=== PATIENT | female | born 1965 | race Caucasian/White ===

== ENCOUNTER 2017-07-07 12:59 | Emergency (ER) | payer BC ==
[2017-07-07] MEDS ORDERED: KETOROLAC 30 MG/ML 1 ML VIAL IVP STA (15:30)
--- NOTE | 2017-07-07 15:34 | ED ---
Abdominal Pain HPI - General Chief Complaint: Abdominal Pain Stated Complaint: Abd Pain Time Seen by Provider: 07/07/17 15:17 Source: patient Mode of arrival: ambulatory Limitations: no limitations - History of Present Illness Initial Comments: 51-year-old female presenting with lower abdominal pain that began yesterday. Patient states started yesterday morning after she awoke. She states it's an intermittent sharp pain is worse with ambulation and sitting up and improves with rest. She's been taking Motrin and Tylenol without any relief. Patient states yesterday she had one episode of inability to urinate that resolved 2 hours later. She denies any chest pain or short of breath. She admits to a fever yesterday of 100.4. Patient states that her primary care physician today who instructed her to come to the emergency department for concern of appendicitis. Patient states she has no history of diverticulitis or other IBD. She has no history of kidney stones. - Related Data Home Medications Medication Instructions Recorded Confirmed Aspirin [Adult Low Dose Aspirin EC] 81 mg PO DAILY 03/26/15 07/07/17 Enalapril [Vasotec] 10 mg PO DAILY 03/26/15 07/07/17 L.acidoph,Paracasei, B.lactis 1 cap PO DAILY 03/26/15 07/07/17 [Probiotic] Metoprolol Succinate (ER) [Toprol 25 mg PO DAILY 03/26/15 07/07/17 Xl] Previous Rx's Medication Instructions Recorded Amoxicillin/Potassium Clav 1 tab PO Q12HR 10 Days #20 tab 07/07/17 [Augmentin 875-125 Tablet] Allergies Allergy/AdvReac Type Severity Reaction Status Date / Time latex Allergy causes Verified 07/07/17 15:36 blistering and sloughing of skin nitrofurantoin Allergy Rash/Hives Verified 07/07/17 15:36 macrocrystalline [From Macrodantin] Review of Systems ROS Statement: Those systems with pertinent positive or pertinent negative responses have been documented in the HPI. Review of Systems Constitutional: Denies fever, chills Eyes: Denies change in vision, Denies pain Ears, nose, mouth, throat: Denies headaches, Denies sore throat Cardiovascular: Denies chest pain. Denies palpitations Respiratory: Denies shortness of breath, Denies cough Gastrointestinal: Positive abdominal pain. Denies nausea, vomiting, diarrhea. Genitourinary: Denies hematuria, Denies infections. Positive dysuria. Musculoskeletal: Denies pain, Denies swelling Integumentary: Denies rash Neurological: Denies headache, focal weakness, focal numbness. Positive syncope Psychiatric: Denies anxiety, Denies depression Hematologic/Lymphatic: Denies easy bleeding or bruising ROS Other: All systems not noted in ROS Statement are negative. Past Medical History Past Medical History: GERD/Reflux, Hypertension, Sleep Apnea/CPAP/BIPAP Additional Past Medical History / Comment(s): recent dx of hital hernia History of Any Multi-Drug Resistant Organisms: None Reported Past Surgical History: Cholecystectomy, Orthopedic Surgery, Tubal Ligation, Uterine Ablation Additional Past Surgical History / Comment(s): BILAT KNEE SCOPES Past Anesthesia/Blood Transfusion Reactions: Postoperative Nausea & Vomiting ( PONV) Past Psychological History: No Psychological Hx Reported Smoking Status: Never smoker Past Alcohol Use History: Rare Past Drug Use History: None Reported - Past Family History Mother Family Medical History: Cancer General Exam - General Exam Comments Initial Comments: General: Awake, alert, No acute Distress HENT: Normocephalic. Atraumatic Eyes: PERRL. EOMI. No scleral icterus. No injected conjunctiva Neck: Full ROM Chest/Lungs: Clear to auscultation bilaterally. No wheezing, rhonchi, or rales Cardiac: Regular rate, rhythm. No murmurs or rubs Abdomen/GI: Soft. TTP RLQ, suprapubic, and LLQ. No rebound or guarding. Musculoskeletal: Full ROM Skin: Warm, dry, intact Neurologic: A/Ox3, no weakness, no sensory deficit, no abdnormal gait, no coordination deficit Limitations: no limitations Course Vital Signs 07/07/17 13:58 Temperature 98.1 F Pulse Rate 99 Respiratory 20 Rate Blood Pressure 140/94 O2 Sat by Pulse 96 Oximetry Medical Decision Making - Medical Decision Making 51-year-old female presenting with abdominal pain. Initial exam the patient is awake, alert, no acute distress. VSS. Patient's abdomen is tender but non- peritoneal. Laboratory workup is unremarkable. Computed tomography scan showed uncomplicated diverticulitis. Stable for outpatient treatment of her diverticulitis. States she had a colonoscopy 2 years ago which was unremarkable. No further emergent workup indicated. The patient was given return to ED instructions. They were instructed to follow up with their primary care provider. Stable for discharge at this time. - Lab Data Result diagrams: 07/07/17 15:50 07/07/17 15:50 Lab Results 07/07/17 07/07/17 07/07/17 Range/Units 15:50 15:50 15:50 WBC 9.9 (3.8-10.6) k/uL RBC 4.73 (3.80-5.40) m/uL Hgb 14.3 (11.4-16.0) gm/dL Hct 39.9 (34.0-46.0) % MCV 84.3 (80.0-100.0) fL MCH 30.2 (25.0-35.0) pg MCHC 35.9 (31.0-37.0) g/dL RDW 12.8 (11.5-15.5) % Plt Count 228 (150-450) k/uL Neutrophils % 75 % Lymphocytes % 17 % Monocytes % 5 % Eosinophils % 2 % Basophils % 0 % Neutrophils # 7.3 (1.3-7.7) k/uL Lymphocytes # 1.7 (1.0-4.8) k/uL Monocytes # 0.5 (0-1.0) k/uL Eosinophils # 0.2 (0-0.7) k/uL Basophils # 0.0 (0-0.2) k/uL Sodium 140 (137-145) mmol/L Potassium 3.7 (3.5-5.1) mmol/L Chloride 103 (98-107) mmol/L Carbon Dioxide 23 (22-30) mmol/L Anion Gap 14 mmol/L BUN 8 (7-17) mg/dL Creatinine 0.52 (0.52-1.04) mg/dL Est GFR (CKD-EPI)AfAm >90 (>60 ml/min/1.73 sqM) Est GFR (CKD-EPI)NonAf >90 (>60 ml/min/1.73 sqM) Glucose 93 (74-99) mg/dL Calcium 9.1 (8.4-10.2) mg/dL Total Bilirubin 0.6 (0.2-1.3) mg/dL AST 24 (14-36) U/L ALT 37 (9-52) U/L Alkaline Phosphatase 83 (38-126) U/L Total Protein 6.9 (6.3-8.2) g/dL Albumin 3.9 (3.5-5.0) g/dL Amylase 40 (30-110) U/L Lipase 50 (23-300) U/L Urine Color Yellow Urine Appearance Clear (Clear) Urine pH 5.5 (5.0-8.0) Ur Specific [place] 1.009 (1.001-1.035) Urine Protein Negative (Negative) Urine Glucose (UA) Negative (Negative) Urine Ketones 1+ H (Negative) Urine Blood Negative (Negative) Urine Nitrite Negative (Negative) Urine Bilirubin Negative (Negative) Urine Urobilinogen <2.0 (<2.0) mg/dL Ur Leukocyte Esterase Negative (Negative) Disposition Clinical Impression: Diverticulitis Disposition: HOME SELF-CARE Condition: Good Instructions: Diverticulitis (ED), Diverticulitis Diet (ED) Additional Instructions: Return to emergency department if he develops uncontrollable fever, worsening abdominal pain, inability to tolerate eating or drinking. Prescriptions: Amoxicillin/Potassium Clav [Augmentin 875-125 Tablet] 1 tab PO Q12HR 10 Days # 20 tab Referrals: Billy Montez DO [Primary Care Provider] - 1-2 days
[2017-07-07 16:09] LABS: Appearance,Urine Clear (Clear); Bilirubin,Urine Negative (Negative); Blood,Urine Negative (Negative); Color,Urine Yellow; Glucose,Urine (UA) Negative (Negative); Ketones,Urine 1+ (Negative); Leukocyte Esterase,Urine Negative (Negative); Nitrite,Urine Negative (Negative); PH, Urine 5.5 (5.0-8.0); Protein,Urine Negative (Negative); Specific Gravity,Urine 1.009 (1.001-1.035); Urobilinogen,Urine <2.0 mg/dL (<2.0)
[2017-07-07 16:14] LABS: Basophils % (A) 0 %; Eosinophils # (A) 0.2 k/uL (0-0.7); Eosinophils % (A) 2 %; HCT 39.9 % (34.0-46.0); HGB 14.3 gm/dL (11.4-16.0); Lymphocytes # (A) 1.7 k/uL (1.0-4.8); Lymphocytes % (A) 17 %; MCH 30.2 pg (25.0-35.0); MCHC 35.9 g/dL (31.0-37.0); MCV 84.3 fL (80.0-100.0); Monocytes # (A) 0.5 k/uL (0-1.0); Monocytes % (A) 5 %; Neutrophils # (A) 7.3 k/uL (1.3-7.7); Neutrophils % (A) 75 %; Platelet Count 228 k/uL (150-450); RBC 4.73 m/uL (3.80-5.40); RDW 12.8 % (11.5-15.5); WBC 9.9 k/uL (3.8-10.6)
[2017-07-07 16:17] LABS: ALT 37 U/L (9-52); AST 24 U/L (14-36); Albumin 3.9 g/dL (3.5-5.0); Alkaline Phosphatase 83 U/L (38-126); Amylase 40 U/L (30-110); Anion Gap 14 mmol/L; Blood Urea Nitrogen 8 mg/dL (7-17); Calcium 9.1 mg/dL (8.4-10.2); Carbon Dioxide 23 mmol/L (22-30); Chloride 103 mmol/L (98-107); Glucose 93 mg/dL (74-99); Lipase 50 U/L (23-300); Potassium 3.7 mmol/L (3.5-5.1); Sodium 140 mmol/L (137-145); Total Bilirubin 0.6 mg/dL (0.2-1.3); Total Protein 6.9 g/dL (6.3-8.2)
--- NOTE | 2017-07-07 16:31 | CT ---
EXAMINATION TYPE: CT abdomen pelvis wo con DATE OF EXAM: 07/07/2017 COMPARISON: 02/10/2011 HISTORY: RLQ pain CT DLP: 1127.4 mGycm Examination of the solid and hollow viscera is limited given the lack of contrast. FINDINGS: LUNG BASES: No evidence for nodule. No evidence for infiltrate. Small sliding-type hiatal hernia. LIVER/GB: Cholecystectomy clips are noted. Changes of hepatic steatosis. No space-occupying hepatic l esion. PANCREAS: No pancreatic mass identified. No inflammatory process seen. SPLEEN: No evidence for splenomegaly. No intrasplenic lesions seen. ADRENALS: No adrenal nodules identified. No evidence for thickening. KIDNEYS: No evidence for renal mass. No nephrolithiasis. No hydronephrosis. BOWEL: Appendix has a normal appearance. Wall thickening with surrounding perisigmoid inflammatory ch abebe compatible with uncomplicated sigmoid diverticulitis. No evidence of perforation or abscess. No evidence of bowel obstruction. Lymph nodes: No evidence for adenopathy greater than 1 cm. Abdominal aorta: Atheromatous changes seen. No evidence for aneurysm. Genital organs: Subcentimeter left ovarian follicle. Uterus and right ovary are unremarkable. Other: No significant abnormality. IMPRESSION: 1. Uncomplicated sigmoid diverticulitis mild in degree. 2. Hepatic steatosis. 3. Small sliding-type hiatal hernia.
[2017-07-07 17:04] VITALS: BP 120/76; PULSE 87; RESP 18; TEMP 98.7
== END 2017-07-07 17:01 | disposition home or self-care (01) ==
LOC: EC 12:59
DX: K57.92 Diverticulitis of intestine, part unspecified, without perforation or abscess without bleeding (principal); I10 Essential (primary) hypertension; G47.30 Sleep apnea, unspecified; Z99.89 Dependence on other enabling machines and devices; Z90.49 Acquired absence of other specified parts of digestive tract; Z98.51 Tubal ligation status; Z91.040 Latex allergy status; Z88.1 Allergy status to other antibiotic agents; Z79.82 Long term (current) use of aspirin; Z79.899 Other long term (current) drug therapy
CPT/HCPCS: 36415; 80053; 82150; 83690; 85025; 81003; 74176; 99284; 96374; J1885

== ENCOUNTER → 2018-07-15 | Outpatient (CLI) | payer BC ==
--- NOTE | 2018-07-16 09:18 | CT ---
EXAMINATION TYPE: CT angio head DATE OF EXAM: 07/15/2018 6:07 PM COMPARISON: None HISTORY: Migraines x3 months, felt in central back of head CT DLP: 1455.10 mGycm Automated exposure control for dose reduction was used. TECHNIQUE: Performed with IV Contrast, patient injected with 100 mL of Isovue 370. Three-D reconstructed images were performed separately by the technologist. Source images are reviewe d. FINDINGS: Vertebral basilar system appears normal. Posterior cerebral vasculature is normal. The internal carotid arteries bifurcate normally into A1 and M1 segments. The anterior communicating artery is patent. A2 segments are normal. Middle branches are normal. There is a tiny focus of increased caliber and density in the periphery of the left middle cerebral a rtery branches on the reconstructed images. This appears to correspond to a peripheral larger caliber vessel on the source images, perhaps middle meningeal artery. Suspicious aneurysm is not identified. IMPRESSION: 1. KAIBAB OF FUNES WITHIN NORMAL LIMITS.
== END | disposition home or self-care (01) ==
LOC: RADCTMAIN 16:46
PROVIDERS: ATTEND Family Medicine
DX: G43.009 Migraine without aura, not intractable, without status migrainosus (principal); I10 Essential (primary) hypertension
CPT/HCPCS: 70496; Q9967

== ENCOUNTER 2018-08-16 06:35 | Emergency (ER) | payer BC ==
[2018-08-16 06:40] VITALS: TEMP 97.9
[2018-08-16] MEDS ORDERED: SODIUM CHLORIDE 0.9% 1,000 ML IV STA (06:53)
[2018-08-16] MEDS ORDERED: ONDANSETRON 4 MG/2 ML VIAL IVP STA (07:04)
--- NOTE | 2018-08-16 07:07 | ED ---
Abdominal Pain HPI - General Chief Complaint: Abdominal Pain Stated Complaint: Abdominal pain Time Seen by Provider: 08/16/18 06:53 Source: patient, RN notes reviewed Mode of arrival: ambulatory Limitations: no limitations - History of Present Illness Initial Comments: 53-year-old female presents emergency Department with chief complaint of abdominal discomfort nausea vomiting diarrhea. Patient states that she had some intermittent nausea and progressed to vomiting and and Thursday. Patient states that she's had diarrhea rate she is worse every time she tries knee. Last she had this issue she had diverticulitis. Patient reports no fever no chills no night sweats. Patient states she has some dull achy pain in the right lower quadrant. She has a history of tubal ligation and cholecystectomy. Patient states that nobody else is sick in the household. Patient has no chest pain or shortness of breath. Denies any other complaints at this time. - Related Data Home Medications Medication Instructions Recorded Confirmed Aspirin [Adult Low Dose Aspirin EC] 81 mg PO DAILY 03/26/15 08/16/18 Enalapril [Vasotec] 10 mg PO DAILY 03/26/15 08/16/18 L.acidoph,Paracasei, B.lactis 1 cap PO DAILY 03/26/15 08/16/18 [Probiotic] Metoprolol Succinate (ER) [Toprol 25 mg PO DAILY 03/26/15 08/16/18 Xl] Previous Rx's Medication Instructions Recorded Ondansetron Odt [Zofran Odt] 4 mg PO Q8HR PRN #14 tab 08/16/18 Allergies Allergy/AdvReac Type Severity Reaction Status Date / Time latex Allergy causes Verified 08/16/18 08:30 blistering and sloughing of skin nitrofurantoin Allergy Rash/Hives Verified 08/16/18 08:30 macrocrystalline [From Macrodantin] Review of Systems ROS Statement: Those systems with pertinent positive or pertinent negative responses have been documented in the HPI. ROS Other: All systems not noted in ROS Statement are negative. Past Medical History Past Medical History: GERD/Reflux, Hypertension, Sleep Apnea/CPAP/BIPAP Additional Past Medical History / Comment(s): recent dx of hital hernia,diverticulitis History of Any Multi-Drug Resistant Organisms: None Reported Past Surgical History: Cholecystectomy, Orthopedic Surgery, Tubal Ligation, Uterine Ablation Additional Past Surgical History / Comment(s): BILAT KNEE SCOPES Past Anesthesia/Blood Transfusion Reactions: Postoperative Nausea & Vomiting (PONV) Past Psychological History: No Psychological Hx Reported Smoking Status: Never smoker Past Alcohol Use History: Rare Past Drug Use History: None Reported - Past Family History Mother Family Medical History: Cancer General Exam Limitations: no limitations General appearance: alert, in no apparent distress Head exam: Present: atraumatic, normocephalic, normal inspection Neck exam: Present: normal inspection, full ROM. Absent: tenderness, meningismus, lymphadenopathy Respiratory exam: Present: normal lung sounds bilaterally. Absent: respiratory distress, wheezes, rales, rhonchi, stridor Cardiovascular Exam: Present: regular rate, normal rhythm, normal heart sounds. Absent: systolic murmur, diastolic murmur, rubs, gallop, clicks GI/Abdominal exam: Present: soft, tenderness (Mild right lower quadrant), normal bowel sounds. Absent: distended, guarding, rebound, rigid Back exam: Absent: CVA tenderness (R), CVA tenderness (L) Skin exam: Present: warm, dry, intact, normal color. Absent: rash Course Vital Signs 08/16/18 08/16/18 06:36 09:04 Temperature 97.9 F Pulse Rate 80 72 Respiratory 18 16 Rate Blood Pressure 134/98 129/86 O2 Sat by Pulse 99 96 Oximetry Medical Decision Making - Medical Decision Making 53-year-old female presents emergency Department chief complaint abdominal pain, nausea vomiting diarrhea. Patient's lab work is essentially unremarkable CT does not show any evidence of diverticulitis or localized infection. Patient most likely has underlying gastritis. Patient will be discharged with Zofran, advised take [id number] Pepto-Bismol or Mylanta. Return parameters were discussed. - Lab Data Result diagrams: 08/16/18 08:30 08/16/18 07:25 Lab Results 08/16/18 08/16/18 08/16/18 Range/Units 07:15 07:25 07:25 WBC (3.8-10.6) k/uL RBC (3.80-5.40) m/uL Hgb (11.4-16.0) gm/dL Hct (34.0-46.0) % MCV (80.0-100.0) fL MCH (25.0-35.0) pg MCHC (31.0-37.0) g/dL RDW (11.5-15.5) % Plt Count (150-450) k/uL Neutrophils % % Lymphocytes % % Monocytes % % Eosinophils % % Basophils % % Neutrophils # (1.3-7.7) k/uL Lymphocytes # (1.0-4.8) k/uL Monocytes # (0-1.0) k/uL Eosinophils # (0-0.7) k/uL Basophils # (0-0.2) k/uL Sodium 140 (137-145) mmol/L Potassium 3.5 (3.5-5.1) mmol/L Chloride 106 (98-107) mmol/L Carbon Dioxide 23 (22-30) mmol/L Anion Gap 11 mmol/L BUN 13 (7-17) mg/dL Creatinine 0.49 L (0.52-1.04) mg/dL Est GFR (CKD-EPI)AfAm >90 (>60 ml/min/1.73 sqM) Est GFR (CKD-EPI)NonAf >90 (>60 ml/min/1.73 sqM) Glucose 102 H (74-99) mg/dL Plasma Lactic Acid Carlos 0.8 (0.7-2.0) mmol/L Calcium 9.3 (8.4-10.2) mg/dL Total Bilirubin 0.4 (0.2-1.3) mg/dL AST 48 H (14-36) U/L ALT 64 H (9-52) U/L Alkaline Phosphatase 55 (38-126) U/L Total Protein 6.9 (6.3-8.2) g/dL Albumin 4.3 (3.5-5.0) g/dL Lipase 77 (23-300) U/L Urine Color Yellow Urine Appearance Cloudy H (Clear) Urine pH 5.5 (5.0-8.0) Ur Specific [place] 1.031 (1.001-1.035) Urine Protein Trace H (Negative) Urine Glucose (UA) Negative (Negative) Urine Ketones Trace H (Negative) Urine Blood Negative (Negative) Urine Nitrite Negative (Negative) Urine Bilirubin Negative (Negative) Urine Urobilinogen <2.0 (<2.0) mg/dL Ur Leukocyte Esterase Moderate H (Negative) Urine RBC 3 (0-5) /hpf Urine WBC 18 H (0-5) /hpf Ur Squamous Epith Cells 31 H (0-4) /hpf Urine Bacteria Occasional H (None) /hpf Urine Mucus Many H (None) /hpf 08/16/18 Range/Units 08:30 WBC 4.7 (3.8-10.6) k/uL RBC 4.75 (3.80-5.40) m/uL Hgb 14.1 (11.4-16.0) gm/dL Hct 42.0 (34.0-46.0) % MCV 88.4 (80.0-100.0) fL MCH 29.8 (25.0-35.0) pg MCHC 33.7 (31.0-37.0) g/dL RDW 12.5 (11.5-15.5) % Plt Count 247 (150-450) k/uL Neutrophils % 53 % Lymphocytes % 33 % Monocytes % 5 % Eosinophils % 5 % Basophils % 1 % Neutrophils # 2.5 (1.3-7.7) k/uL Lymphocytes # 1.6 (1.0-4.8) k/uL Monocytes # 0.2 (0-1.0) k/uL Eosinophils # 0.2 (0-0.7) k/uL Basophils # 0.0 (0-0.2) k/uL Sodium (137-145) mmol/L Potassium (3.5-5.1) mmol/L Chloride (98-107) mmol/L Carbon Dioxide (22-30) mmol/L Anion Gap mmol/L BUN (7-17) mg/dL Creatinine (0.52-1.04) mg/dL Est GFR (CKD-EPI)AfAm (>60 ml/min/1.73 sqM) Est GFR (CKD-EPI)NonAf (>60 ml/min/1.73 sqM) Glucose (74-99) mg/dL Plasma Lactic Acid Carlos (0.7-2.0) mmol/L Calcium (8.4-10.2) mg/dL Total Bilirubin (0.2-1.3) mg/dL AST (14-36) U/L ALT (9-52) U/L Alkaline Phosphatase (38-126) U/L Total Protein (6.3-8.2) g/dL Albumin (3.5-5.0) g/dL Lipase (23-300) U/L Urine Color Urine Appearance (Clear) Urine pH (5.0-8.0) Ur Specific [place] (1.001-1.035) Urine Protein (Negative) Urine Glucose (UA) (Negative) Urine Ketones (Negative) Urine Blood (Negative) Urine Nitrite (Negative) Urine Bilirubin (Negative) Urine Urobilinogen (<2.0) mg/dL Ur Leukocyte Esterase (Negative) Urine RBC (0-5) /hpf Urine WBC (0-5) /hpf Ur Squamous Epith Cells (0-4) /hpf Urine Bacteria (None) /hpf Urine Mucus (None) /hpf Disposition Clinical Impression: Gastroenteritis Disposition: HOME SELF-CARE Condition: Stable Instructions (If sedation given, give patient instructions): Gastroenteritis (ED) Additional Instructions: Please return to the Emergency Department if symptoms worsen or any other concerns. Prescriptions: Ondansetron Odt [Zofran Odt] 4 mg PO Q8HR PRN #14 tab PRN Reason: Nausea Is patient prescribed a controlled substance at d/c from ED?: No Referrals: Billy Montez DO [Primary Care Provider] - 1-2 days Time of Disposition: 09:07
[2018-08-16 08:05] LABS: Appearance,Urine Cloudy (Clear); Bacteria,Urine Occasional /hpf; Bilirubin,Urine Negative (Negative); Blood,Urine Negative (Negative); Color,Urine Yellow; Glucose,Urine (UA) Negative (Negative); Ketones,Urine Trace (Negative); Leukocyte Esterase,Urine Moderate (Negative); Mucus,Urine Many /hpf; Nitrite,Urine Negative (Negative); PH, Urine 5.5 (5.0-8.0); Protein,Urine Trace (Negative); RBC,Urine 3 /hpf (0-5); Specific Gravity,Urine 1.031 (1.001-1.035); Squamous Epithelial Cell,Urine 31 /hpf (0-4); Urobilinogen,Urine <2.0 mg/dL (<2.0)
--- NOTE | 2018-08-16 08:22 | CT ---
EXAMINATION TYPE: CT abdomen pelvis w con DATE OF EXAM: 08/16/2018 HISTORY: History of diverticulitis with right lower quadrant pain since last night. CT DLP: 1051mGycm Automated Exposure Control for Dose Reduction was Utilized. CONTRAST: CT scan of the abdomen and pelvis is attempted without oral but with with IV Contrast, patient inject ed with 100 mL of Isovue 300. COMPARISON: CT abdomen pelvis July 07, 2017 FINDINGS: There is IV injection difficulties making evaluation suboptimal as essentially only delayed phased imaging is performed. LUNG BASES: There is bibasilar dependent atelectasis. LIVER/GB: Liver is diffusely low dense consistent with fatty infiltration. Cholecystectomy clips are redemonstrated. PANCREAS: No significant abnormality is seen. SPLEEN: Subcentimeter splenule anterior splenic hilum axial image 23. ADRENALS: No significant abnormality is seen. KIDNEYS: No significant abnormality is seen. BOWEL: Scattered diverticula in the left and sigmoid colon are present. No CT evidence for acute dive rticulitis. No suspicious small or large bowel dilatation. No inflammatory change at base of cecum is identified. Appendix not seen with certainty and may be surgically absent. Small sliding-type hiatal hernia redemonstrated. UTERUS/[place]: No gross abnormality seen. LYMPH NODES: No greater than 1cm abdominal or pelvic lymph nodes are appreciated. Prominent but subce ntimeter lymph nodes throughout the left-sided mesentery are present. OSSEOUS STRUCTURES: No significant abnormality is seen. OTHER: No significant additional abnormality is seen. IMPRESSION: No significant new or acute finding is seen to account for patient's clinical symptoms.
[2018-08-16 08:36] LABS: ALT 64 U/L (9-52); AST 48 U/L (14-36); Albumin 4.3 g/dL (3.5-5.0); Alkaline Phosphatase 55 U/L (38-126); Anion Gap 11 mmol/L; Blood Urea Nitrogen 13 mg/dL (7-17); Calcium 9.3 mg/dL (8.4-10.2); Carbon Dioxide 23 mmol/L (22-30); Chloride 106 mmol/L (98-107); Glucose 102 mg/dL (74-99); Lipase 77 U/L (23-300); Potassium 3.5 mmol/L (3.5-5.1); Sodium 140 mmol/L (137-145); Total Bilirubin 0.4 mg/dL (0.2-1.3); Total Protein 6.9 g/dL (6.3-8.2)
[2018-08-16 08:45] LABS: Basophils % (A) 1 %; Eosinophils # (A) 0.2 k/uL (0-0.7); Eosinophils % (A) 5 %; HGB 14.1 gm/dL (11.4-16.0); Lymphocytes # (A) 1.6 k/uL (1.0-4.8); Lymphocytes % (A) 33 %; MCH 29.8 pg (25.0-35.0); MCHC 33.7 g/dL (31.0-37.0); MCV 88.4 fL (80.0-100.0); Monocytes # (A) 0.2 k/uL (0-1.0); Monocytes % (A) 5 %; Neutrophils # (A) 2.5 k/uL (1.3-7.7); Neutrophils % (A) 53 %; Platelet Count 247 k/uL (150-450); RBC 4.75 m/uL (3.80-5.40); RDW 12.5 % (11.5-15.5); WBC 4.7 k/uL (3.8-10.6)
[2018-08-16 09:05] VITALS: BP 129/86; PULSE 72; RESP 16
== END 2018-08-16 09:31 | disposition home or self-care (01) ==
LOC: EC 06:35
DX: K52.9 Noninfective gastroenteritis and colitis, unspecified (principal); I10 Essential (primary) hypertension; G47.30 Sleep apnea, unspecified; Z79.82 Long term (current) use of aspirin; Z79.899 Other long term (current) drug therapy; Z91.040 Latex allergy status; Z88.1 Allergy status to other antibiotic agents; Z90.49 Acquired absence of other specified parts of digestive tract
CPT/HCPCS: 36415; 80053; 83605; 83690; 85025; 81001; 87086; 74177; 99284; 96374; 96361 ×2; J2405; Q9967

== ENCOUNTER → 2018-09-01 | Outpatient (CLI) | payer BC ==
--- NOTE | 2018-09-01 16:20 | XR ---
EXAMINATION TYPE: XR knee complete RT DATE OF EXAM: 09/01/2018 CLINICAL HISTORY: Medial and anterior right knee pain after strain injury TECHNIQUE: Three views of the right knee are obtained. COMPARISON: 01/11/2013 left knee x-ray. FINDINGS: There is no acute fracture/dislocation evident in right knee. There is mild medial compart ment joint space narrowing and very minimal tricompartmental osteophytes.. The overlying soft tissue appears unremarkable. IMPRESSION: There is no acute fracture or dislocation in the right knee. Mild tricompartmental arthr opathy.
== END | disposition home or self-care (01) ==
LOC: RADXRYALE 15:58
PROVIDERS: ATTEND Physician Assistant Medical
DX: M17.11 Unilateral primary osteoarthritis, right knee (principal)

== ENCOUNTER → 2019-10-18 | Outpatient (CLI) | payer BC ==
--- NOTE | 2019-10-18 11:33 | XR ---
EXAMINATION TYPE: XR cervical spine 5 views comp, XR lumbosacral spine min 4V DATE OF EXAM: 10/18/2019 COMPARISON: None HISTORY: 54-year-old female [id number], [id number], [id number], NECK PAIN, LBP, RT HIP PAIN FINDINGS: Cervical spine: Normal odontoid view. Straightening of the normal cervical lordosis with preserved alignment. No pred ental space widening or prevertebral soft tissue swelling. Moderate degenerative disc disease C5-C6 w ith endplate spondylosis and disc height loss. Mild bony spondylotic neuroforaminal narrowing on the left at C3-C4 and C5-C6. Lumbar spine: Vertebral body heights are preserved. Facet arthropathy lower lumbar spine. Trace grade 1 anterolisth esis L4-L5. Disc interspaces are relatively maintained. No pars interarticularis defect seen. IMPRESSION: 1. Cervical spine: Moderate spondylotic change at C5-C6. Mild bony neuroforaminal narrowing on the le ft at C3-C4 and C5-C6. No malalignment. 2. Lumbar spine: Some facet degenerative change lower lumbar spine. No vertebral compression collapse . Trace grade 1 anterolisthesis at L4-L5.
== END | disposition home or self-care (01) ==
LOC: RADXRYALE 08:39
PROVIDERS: ATTEND Physician Assistant Medical
DX: M48.02 Spinal stenosis, cervical region (principal); M47.812 Spondylosis without myelopathy or radiculopathy, cervical region; M47.816 Spondylosis without myelopathy or radiculopathy, lumbar region
CPT/HCPCS: 72050; 72110

== ENCOUNTER 2020-06-27 17:47 | Inpatient (IN) | payer BC ==
[2020-06-27] MEDS ORDERED: NALOXONE 0.4 MG/ML 1 ML VIAL IV PRN (18:10)
[2020-06-27] MEDS ORDERED: ACETAMINOPHEN TAB 325 MG TAB PO PRN (18:10)
--- NOTE | 2020-06-27 18:20 | ED ---
General Adult HPI - General Stated complaint: SOB Time Seen by Provider: 06/27/20 17:51 Source: patient, EMS, RN notes reviewed, old records reviewed - History of Present Illness Initial comments: 54-year-old female transferred from [facility] for coronavirus pneumonia and hypoxia. Patient has been sick for approximately 10 days. Her was diagnosed with coronavirus prior to this. She's had some minimal nausea vomiting as well as increased cough and dyspnea. Her primary care physician had noted a pulse ox in the 80s. She was sent outside emergency department where she continued to be hypoxic which did respond to supplemental oxygen. She was placed on 4 L. Chest x-ray as well as laboratory testing was performed she was given 10 mg of Decadron and transferred to this institution for coronavirus with hypoxia and pulmonology consultation. - Related Data Home Medications Medication Instructions Recorded Confirmed Aspirin [Adult Low Dose Aspirin EC] 81 mg PO DAILY 03/26/15 08/16/18 Enalapril [Vasotec] 10 mg PO DAILY 03/26/15 08/16/18 L.acidoph,Paracasei, B.lactis 1 cap PO DAILY 03/26/15 08/16/18 [Probiotic] Metoprolol Succinate (ER) [Toprol 25 mg PO DAILY 03/26/15 08/16/18 Xl] Previous Rx's Medication Instructions Recorded Ondansetron Odt [Zofran Odt] 4 mg PO Q8HR PRN #14 tab 08/16/18 Allergies Allergy/AdvReac Type Severity Reaction Status Date / Time latex Allergy causes Verified 08/16/18 08:30 blistering and sloughing of skin nitrofurantoin Allergy Rash/Hives Verified 08/16/18 08:30 macrocrystalline [From Macrodantin] Review of Systems ROS Statement: Those systems with pertinent positive or pertinent negative responses have been documented in the HPI. ROS Other: All systems not noted in ROS Statement are negative. Past Medical History Past Medical History: GERD/Reflux, Hypertension, Sleep Apnea/CPAP/BIPAP Additional Past Medical History / Comment(s): recent dx of hital hernia,diverticulitis History of Any Multi-Drug Resistant Organisms: None Reported Past Surgical History: Cholecystectomy, Orthopedic Surgery, Tubal Ligation, Uterine Ablation Additional Past Surgical History / Comment(s): BILAT KNEE SCOPES Past Anesthesia/Blood Transfusion Reactions: Postoperative Nausea & Vomiting (PONV) Past Psychological History: No Psychological Hx Reported Past Alcohol Use History: Rare Past Drug Use History: None Reported - Past Family History Mother Family Medical History: Cancer General Exam General appearance: alert, in no apparent distress Head exam: Present: atraumatic, normocephalic Eye exam: Present: normal appearance, PERRL ENT exam: Present: normal exam Neck exam: Present: normal inspection. Absent: tenderness, meningismus Respiratory exam: Present: respiratory distress, rales, decreased breath sounds Cardiovascular Exam: Present: regular rate, normal rhythm GI/Abdominal exam: Present: soft. Absent: distended, tenderness, guarding, rebound Extremities exam: Present: normal inspection, normal capillary refill. Absent: pedal edema Neurological exam: Present: alert, oriented X3, CN II-XII intact. Absent: motor sensory deficit Psychiatric exam: Present: normal affect, normal mood Skin exam: Present: warm, dry, intact. Absent: cyanosis, diaphoretic Medical Decision Making - Medical Decision Making 54-year-old female transferred for coronavirus pneumonia with hypoxia. She had been given Decadron prior to transfer. She is comfortable on nasal cannula while in the emergency department. She will be admitted to internal medicine with pulmonology on consult. Laboratory testing obtained and reviewed. The patient had a CRP of 15, d-dimer 0.24. Normal CBC, normal CMP. Disposition Clinical Impression: Hypoxia, Pneumonia due to COVID-19 virus Disposition: ADMITTED IP TO THIS HOSP Condition: Stable Is patient prescribed a controlled substance at d/c from ED?: No Referrals: Billy Montez DO [Primary Care Provider] - 1-2 days Decision to Admit Reason: Admit from EC Decision Date: 06/27/20 Decision Time: 18:19
[2020-06-27] MEDS: SODIUM CHLORIDE 0.9% 1,000 ML IV SCH (19:16)
[2020-06-28 09:37] LABS: Basophils % (A) 0 %; Eosinophils % (A) 0 %; HCT 47.1 % (34.0-46.0); HGB 15.8 gm/dL (11.4-16.0); Lymphocytes # (A) 1.5 k/uL (1.0-4.8); Lymphocytes % (A) 28 %; MCH 29.8 pg (25.0-35.0); MCHC 33.4 g/dL (31.0-37.0); MCV 89.2 fL (80.0-100.0); Mean Platelet Volume 7.5; Monocytes # (A) 0.2 k/uL (0-1.0); Monocytes % (A) 4 %; Neutrophils # (A) 3.4 k/uL (1.3-7.7); Neutrophils % (A) 66 %; Platelet Count 217 k/uL (150-450); RBC 5.28 m/uL (3.80-5.40); RDW 12.2 % (11.5-15.5); WBC 5.2 k/uL (3.8-10.6)
[2020-06-28] MEDS: CHOLECALCIFEROL 25 MCG (1000 IU) TABLET PO SCH (09:38)
[2020-06-28] MEDS: dexAMETHasone 2 MG TAB PO SCH (09:39)
[2020-06-28] MEDS: ZINC SULFATE 220 MG CAP PO SCH (09:39)
[2020-06-28] MEDS: ASCORBIC ACID 500 MG TAB PO SCH ×2 (09:39→21:13)
[2020-06-28] MEDS: ENOXAPARIN 40 MG/0.4 ML SYRINGE SQ SCH (09:39)
--- NOTE | 2020-06-28 09:41 | XR ---
EXAMINATION TYPE: XR chest 1V portable DATE OF EXAM: 06/28/2020 Comparison: 06/27/2020 Clinical History: 54-year-old female COVID Findings: Heart normal size. Aorta and pulmonary vasculature within normal limits. Difficult to exclude early p atchy peripheral left midlung opacity. Hazy lower lung densities related to overlying soft tissue. No pleural effusion. Impression: Unable to exclude early peripheral left midlung infiltrate.
[2020-06-28 09:52] LABS: ALT 29 U/L (4-34); AST 26 U/L (14-36); African American GFR (CKD) >90 (>60 ml/min/1.73 sqM); Albumin 4.5 g/dL (3.5-5.0); Albumin/Globulin Ratio 1.5; Alkaline Phosphatase 79 U/L (38-126); Anion Gap 12 mmol/L; Blood Urea Nitrogen 11 mg/dL (7-17); Calcium 9.6 mg/dL (8.4-10.2); Carbon Dioxide 24 mmol/L (22-30); Chloride 104 mmol/L (98-107); Glucose 139 mg/dL (74-99); Non-African American GFR(CKD) >90 (>60 ml/min/1.73 sqM); Sodium 140 mmol/L (137-145); Total Bilirubin 0.5 mg/dL (0.2-1.3); Total Protein 7.5 g/dL (6.3-8.2)
[2020-06-28 10:01] LABS: D-Dimer 0.26 mg/L FEU (<0.60); Prothrombin Time 10.5 sec (9.0-12.0)
--- NOTE | 2020-06-28 10:44 | P.CNPUL ---
History of Present Illness Consult date: 06/28/20 Requesting physician: Godwin Rojas Reason for consult: dyspnea, cough, hypoxemia, pneumonia, abnormal CXR/CT Chief complaint: Shortness of breath cough, COVID pneumonia. History of present illness: 54-year-old female, who was transferred down from [facility], for possible COVID 19 pneumonia and acute hypoxemic respiratory failure. The patient hasn't been feeling well since June 17. Her was diagnosed with COVID 19, and again she's been sick for about 10 or 11 days. Her symptoms included nausea, vomiting, cough, shortness of breath, and just not feeling well, with weakness, fatigue, and muscle aches. She has also had headache. Currently, she resides in the emergency room, she's on 5 L nasal cannula, and saline at 20 mL an hour. She had a recent test that [facility] on June 27. The results are currently pending. She was given a chest x-ray at the out side hospital, place on oxygen, and given some Decadron. She has a history of gastroesophageal reflux disease, hypertension, sleep apnea syndrome, hiatal hernia, and diverticular disease. She has no prior history of any lung issues. White count is 5.2, hemoglobin 15.8, hematocrit 47.1, and platelet count is normal. PT INR and d-dimer are all normal. Sodium potassium chloride CO2 anion gap, BUN, and creatinine are all within normal range. The results of the COVIDtest at the outside hospital are not available. Review of Systems REVIEW OF SYSTEMS: CONSTITUTIONAL: Weakness and fatigue. NEUROLOGIC: Headache. HEENT: [ Negative.] CARDIAC: [Negative.] PULMONARY: Shortness of breath, and cough. GI: Nausea and vomiting. : [Negative.] RHEUMATOLOGIC: [ Negative.] IMMUNOLOGIC: [ Negative.] ENDOCRINE: [Negative. ] DERMATOLOGIC: [Negative.] Past Medical History Past Medical History: GERD/Reflux, Hypertension, Sleep Apnea/CPAP/BIPAP Additional Past Medical History / Comment(s): recent dx of hital hernia,diverticulitis History of Any Multi-Drug Resistant Organisms: None Reported Past Surgical History: Cholecystectomy, Orthopedic Surgery, Tubal Ligation, Uterine Ablation Additional Past Surgical History / Comment(s): BILAT KNEE SCOPES Past Anesthesia/Blood Transfusion Reactions: Postoperative Nausea & Vomiting (PONV) Past Psychological History: No Psychological Hx Reported Past Alcohol Use History: Rare Past Drug Use History: None Reported - Past Family History Mother Family Medical History: Cancer Medications and Allergies Home Medications Medication Instructions Recorded Confirmed Type Aspirin [Adult Low Dose Aspirin EC] 81 mg PO DAILY 03/26/15 06/27/20 History Enalapril [Vasotec] 10 mg PO DAILY 03/26/15 06/27/20 History Metoprolol Succinate (ER) [Toprol 25 mg PO DAILY 03/26/15 06/27/20 History Xl] Multivitamins, Thera [Multivitamin 1 tab PO DAILY 06/27/20 06/27/20 History (formulary)] Allergies Allergy/AdvReac Type Severity Reaction Status Date / Time latex Allergy causes Verified 06/27/20 19:12 blistering and sloughing of skin nitrofurantoin Allergy Rash/Hives Verified 06/27/20 19:12 macrocrystalline [From Macrodantin] Physical Exam Osteopathic Statement: *. No significant issues noted on an osteopathic structural exam other than those noted in the History and Physical/Consult. Vitals: Vital Signs Temp Pulse Resp BP Pulse Ox 06/28/20 09:35 98.6 F 98 16 133/93 95 06/28/20 05:47 98.4 F 92 20 133/93 93 L 06/28/20 00:30 98.4 F 87 20 133/94 92 L 06/27/20 19:26 100 18 140/93 93 L 06/27/20 18:30 99.2 F 100 18 133/88 93 L Intake and Output 06/27/20 06/28/20 06/28/20 22:59 06:59 14:59 Other: Weight 113.398 kg No acute distress, oriented 3. No acute distress. No audible wheezing, or use of accessory muscles. Saturation on 2 L is 95%. HEENT examination is grossly unremarkable. Mucous membranes are moist. No oral lesions. Neck supple. Full range of motion. No adenopathy thyromegaly or neck vein d istention. Cardiovascular examination reveals regular rhythm rate. S1-S2 normal. No S3 or S4. No discernible murmur noted. Heart rate is 98 bpm. Lungs reveal mild bilateral rhonchi, and bilateral crackles. No wheezes. Breath sounds equal bilaterally. Abdomen soft bowel sounds are heard. No masses or tenderness. Extremities are intact. No cyanosis clubbing or edema. Skin is without rash or lesion. Neurologic examination is brief but nonfocal. Results - Laboratory Findings CBC and BMP: 06/28/20 09:11 06/28/20 09:11 PT/INR, D-dimer PT 10.5 sec (9.0-12.0) 06/28/20 09:11 INR 1.0 (<1.2) 06/28/20 09:11 D-Dimer 0.26 mg/L FEU (<0.60) 06/28/20 09:11 Abnormal lab findings: Abnormal Labs 06/28/20 06/28/20 09:11 09:11 Hct 47.1 H Glucose 139 H - Diagnostic Findings Chest x-ray: image reviewed Assessment and Plan Assessment: Probable COVID 19 pneumonia, with mild/moderate hypoxemic respiratory failure. History of gastroesophageal reflux disease. History of hypertension. History of obstructive sleep apnea syndrome, currently on CPAP. History of hiatal hernia. History of diverticulitis. Plan: Plan dated 06/28/2020. The patient is suspected to have COVID 19 pneumonia. Her was diagnosed with COVID. She does have classic symptoms of the infection. In addition, she has an abnormal chest x-ray. She apparently was retested at the outside hospital yesterday. This is also pending. She's currently on 3 L nasal cannula. She does feel short of breath and is coughing. Her laboratory data is reviewed. The only thing she was really a candidate for an opinion was oxygen, albuterol inhaler, vitamin C, vitamin D3, and zinc, and Decadron 6 mg a day. We will continue to follow and make recommendations were appropriate. Time with Patient: Greater than 30
--- NOTE | 2020-06-28 14:22 | P.HPIM ---
History of Present Illness Pleasant 54-year-old female came in as she is found hypoxic. Patient started having symptoms of covid, about 10-11 days ago. Patient to was having symptoms of nausea vomiting, shortness of breath and fatigue muscle aches and some abdominal discomfort. Patient was started on Decadron. Patient denied any smoking history. Patient was diagnosed with Covid as an outpatient most of the family members except for some is diagnosed with Covid. Review of Systems REVIEW OF SYSTEMS: CONSTITUTIONAL: As mentioned in HPI HEENT: No recent visual problems or hearing problems. Denied any sore throat. CARDIOVASCULAR: No chest pain, orthopnea, PND, no palpitations, no syncope. PULMONARY: As mentioned in HPI GASTROINTESTINAL: No diarrhea, no nausea, no vomiting, no abdominal pain. NEUROLOGICAL: No headaches, no weakness, no numbness. HEMATOLOGICAL: Denies any bleeding or petechiae. GENITOURINARY: Denies any burning micturition, frequency, or urgency. MUSCULOSKELETAL/RHEUMATOLOGICAL: Denies any joint pain, swelling, or any muscle pain. ENDOCRINE: Denies any polyuria or polydipsia. The rest of the 14-point review of systems is negative. Past Medical History Past Medical History: GERD/Reflux, Hypertension, Sleep Apnea/CPAP/BIPAP Additional Past Medical History / Comment(s): recent dx of hital hernia,diverticulitis History of Any Multi-Drug Resistant Organisms: None Reported Past Surgical History: Cholecystectomy, Orthopedic Surgery, Tubal Ligation, Uterine Ablation Additional Past Surgical History / Comment(s): BILAT KNEE SCOPES Past Anesthesia/Blood Transfusion Reactions: Postoperative Nausea & Vomiting (PONV) Past Psychological History: No Psychological Hx Reported Past Alcohol Use History: Rare Past Drug Use History: None Reported - Past Family History Mother Family Medical History: Cancer Medications and Allergies Home Medications Medication Instructions Recorded Confirmed Type Aspirin [Adult Low Dose Aspirin EC] 81 mg PO DAILY 03/26/15 06/27/20 History Enalapril [Vasotec] 10 mg PO DAILY 03/26/15 06/27/20 History Metoprolol Succinate (ER) [Toprol 25 mg PO DAILY 03/26/15 06/27/20 History Xl] Multivitamins, Thera [Multivitamin 1 tab PO DAILY 06/27/20 06/27/20 History (formulary)] Allergies Allergy/AdvReac Type Severity Reaction Status Date / Time latex Allergy causes Verified 06/27/20 19:12 blistering and sloughing of skin nitrofurantoin Allergy Rash/Hives Verified 06/27/20 19:12 macrocrystalline [From Macrodantin] Physical Exam Vitals: Vital Signs Temp Pulse Resp BP Pulse Ox 06/28/20 13:09 99 93 L 06/28/20 11:57 98.9 F 101 H 18 124/98 91 L 06/28/20 09:35 98.6 F 98 16 133/93 95 06/28/20 05:47 98.4 F 92 20 133/93 93 L 06/28/20 00:30 98.4 F 87 20 133/94 92 L 06/27/20 19:26 100 18 140/93 93 L 06/27/20 18:30 99.2 F 100 18 133/88 93 L Intake and Output 06/27/20 06/28/20 06/28/20 22:59 06:59 14:59 Other: Weight 113.398 kg PHYSICAL EXAMINATION: GENERAL: The patient is alert and oriented x3, not in any acute distress. Well developed, well nourished. HEENT: Pupils are round and equally reacting to light. EOMI. No scleral icterus. No conjunctival pallor. Normocephalic, atraumatic. No pharyngeal erythema. No thyromegaly. CARDIOVASCULAR: S1 and S2 present. No murmurs, rubs, or gallops. PULMONARY: Chest is clear to auscultation, no wheezing or crackles. ABDOMEN: Soft, nontender, nondistended, normoactive bowel sounds. No palpable organomegaly. MUSCULOSKELETAL: No joint swelling or deformity. EXTREMITIES: No cyanosis, clubbing, or pedal edema. NEUROLOGICAL: Gross neurological examination did not reveal any focal deficits. SKIN: No rashes. Results CBC & Chem 7: 06/28/20 09:11 06/28/20 09:11 Labs: Abnormal Lab Results - Last 24 Hours (Table) 06/28/20 06/28/20 Range/Units 09:11 09:11 Hct 47.1 H (34.0-46.0) % Glucose 139 H (74-99) mg/dL Assessment and Plan Plan: -Covid 19 pneumonia and mild hypoxemia: Patient will be continued on systemic steroids vitamins. Patient will be monitored overnight today -Gastroesophageal reflux disease -Hypertension -Sleep apnea and patient uses CPAP machine at home -Hiatal hernia -DVT prophylaxis with Lovenox, GI prophylaxis with Pepcid
[2020-06-28] MEDS ORDERED: ALBUTEROL HFA INHALER INHALATION PRN (20:57)
[2020-06-28] MEDS: FAMOTIDINE 20 MG TAB PO SCH (21:13)
[2020-06-28] MEDS: SODIUM CHLORIDE 0.9% 1,000 ML IV SCH (21:14)
[2020-06-29 06:36] LABS: Basophils % (A) 0 %; Eosinophils % (A) 0 %; HCT 43.1 % (34.0-46.0); HGB 14.2 gm/dL (11.4-16.0); Lymphocytes # (A) 2.1 k/uL (1.0-4.8); Lymphocytes % (A) 30 %; MCH 29.5 pg (25.0-35.0); MCHC 33.1 g/dL (31.0-37.0); MCV 89.1 fL (80.0-100.0); Mean Platelet Volume 7.5; Monocytes # (A) 0.4 k/uL (0-1.0); Monocytes % (A) 5 %; Neutrophils # (A) 4.5 k/uL (1.3-7.7); Neutrophils % (A) 63 %; Platelet Count 230 k/uL (150-450); RBC 4.83 m/uL (3.80-5.40); RDW 12.3 % (11.5-15.5); WBC 7.2 k/uL (3.8-10.6)
[2020-06-29 06:49] LABS: ALT 22 U/L (4-34); AST 21 U/L (14-36); African American GFR (CKD) >90 (>60 ml/min/1.73 sqM); Albumin 3.9 g/dL (3.5-5.0); Albumin/Globulin Ratio 1.3; Alkaline Phosphatase 66 U/L (38-126); Anion Gap 9 mmol/L; Blood Urea Nitrogen 15 mg/dL (7-17); Calcium 9.1 mg/dL (8.4-10.2); Carbon Dioxide 27 mmol/L (22-30); Chloride 103 mmol/L (98-107); Globulin 2.9 g/dL; Glucose 109 mg/dL (74-99); Non-African American GFR(CKD) >90 (>60 ml/min/1.73 sqM); Potassium 3.7 mmol/L (3.5-5.1); Sodium 139 mmol/L (137-145); Total Bilirubin 0.4 mg/dL (0.2-1.3); Total Protein 6.8 g/dL (6.3-8.2)
[2020-06-29] MEDS ORDERED: METOPROLOL SUCCINATE (ER) 25 MG TAB.ER.24H PO SCH (09:00)
[2020-06-29] MEDS ORDERED: lisinopriL 20 MG TAB PO SCH (09:00)
[2020-06-29] MEDS ORDERED: ASPIRIN 81 MG PO SCH (09:00)
[2020-06-29] MEDS ORDERED: MULTIVITAMINS, THERA 1 EACH TAB PO SCH (09:00)
[2020-06-29] MEDS: dexAMETHasone 2 MG TAB PO SCH (09:47)
[2020-06-29] MEDS: ZINC SULFATE 220 MG CAP PO SCH (09:47)
[2020-06-29] MEDS: CHOLECALCIFEROL 25 MCG (1000 IU) TABLET PO SCH (09:47)
[2020-06-29] MEDS: ASCORBIC ACID 500 MG TAB PO SCH (09:47)
[2020-06-29] MEDS: ENOXAPARIN 40 MG/0.4 ML SYRINGE SQ SCH (09:48)
[2020-06-29] MEDS: FAMOTIDINE 20 MG TAB PO SCH (09:54)
[2020-06-29 10:06] VITALS: BP 142/88; PULSE 82; RESP 18; TEMP 97.7
[2020-06-29 11:20] VITALS: BMI 41.5
--- NOTE | 2020-06-29 16:34 | P.DS ---
Providers Date of admission: 06/27/20 18:10 Expected date of discharge: 06/29/20 Attending physician: Godwin Rojas Consults: 06/27/20 18:11 Consult Physician Routine Consulting Provider: Ezra Fonseca Reason/Comments: covid Do you want consulting provider notified?: Yes Primary care physician: Billy Polanco Hospital Course: Final diagnosis -Covid 19 pneumonia and mild hypoxemia -Gastroesophageal reflux disease -Hypertension -Sleep apnea and patient uses CPAP machine at home -Hiatal hernia -DVT prophylaxis -GI prophylaxis Discharge disposition Patient is being discharged in a stable condition with guarded prognosis to home. Patient will follow-up with Dr. Polanco in the outpatient setting upon discharge. Patient will also follow-up with pulmonary in the outpatient setting in a few weeks. Continue with dexamethasone along with vitamin C and zinc supplements. Total time taken is greater than 35 minutes. Hospital course Pleasant 54-year-old female came in as she is found hypoxic. Patient started having symptoms of covid, about 10-11 days ago. Patient to was having symptoms of nausea vomiting, shortness of breath and fatigue muscle aches and some abdominal discomfort. Patient was started on Decadron. Patient denied any smoking history. Patient was diagnosed with Covid as an outpatient most of the family members except for some is diagnosed with Covid. 06/29/2020 Patient is seen and evaluated in follow-up with no acute overnight issues. Patient currently maintained on room air not requiring any oxygen. Patient states her shortness of breath has not worsened and states she is feeling well enough to go home. Instructed the patient to continue to isolate, frequent handwashing, facemasks, and continue dexamethasone along with the vitamin and zinc supplements. Patient will also follow-up outpatient with pulmonary in a few weeks. Currently no reports of chest pain, worsening shortness of breath, or palpitations. Patient is afebrile. No reports of nausea or vomiting and patient is tolerating diet. Patient will be discharged home today. On exam vital signs are stable. Cardio S1, S2 are muffled. Respiratory system shows diminished breath sounds at the bases with no wheezing or rhonchi noted. Abdomen is soft and obese, and nontender. Nervous system shows no focal deficits. Please refer to medication reconciliation sheet for a list of medications. Patient Condition at Discharge: Stable Plan - Discharge Summary Discharge Rx Participant: Yes New Discharge Prescriptions: New Dexamethasone 6 mg PO DAILY 8 Days #8 tablet Zinc Sulfate [Orazinc] 220 mg PO DAILY 30 Days #30 cap Famotidine [Pepcid] 20 mg PO BID 30 Days #60 tab Acetaminophen Tab [Tylenol] 650 mg PO Q6HR PRN #30 tab PRN Reason: Mild Pain Or Fever > 100.5 Albuterol Inhaler [Ventolin Hfa Inhaler] 2 puff INHALATION RT-QID PRN 30 Days #1 puff PRN Reason: Shortness Of Breath Or Wheezing Ascorbic Acid [Vitamin C] 500 mg PO BID 30 Days #60 tab Cholecalciferol [Vitamin D3 (25 Mcg = 1000 Iu)] 100 mcg PO DAILY 30 Days #30 tablet Continue Enalapril [Vasotec] 10 mg PO DAILY Metoprolol Succinate (ER) [Toprol XL] 25 mg PO DAILY Aspirin [Adult Low Dose Aspirin EC] 81 mg PO DAILY Multivitamins, Thera [Multivitamin (formulary)] 1 tab PO DAILY Discharge Medication List Aspirin [Adult Low Dose Aspirin EC] 81 mg PO DAILY 03/26/15 [History] Enalapril [Vasotec] 10 mg PO DAILY 03/26/15 [History] Metoprolol Succinate (ER) [Toprol XL] 25 mg PO DAILY 03/26/15 [History] Multivitamins, Thera [Multivitamin (formulary)] 1 tab PO DAILY 06/27/20 [History] Acetaminophen Tab [Tylenol] 650 mg PO Q6HR PRN #30 tab 06/29/20 [Rx] Albuterol Inhaler [Ventolin Hfa Inhaler] 2 puff INHALATION RT-QID PRN 30 Days #1 puff 06/29/20 [Rx] Ascorbic Acid [Vitamin C] 500 mg PO BID 30 Days #60 tab 06/29/20 [Rx] Cholecalciferol [Vitamin D3 (25 Mcg = 1000 Iu)] 100 mcg PO DAILY 30 Days #30 tablet 06/29/20 [Rx] Dexamethasone 6 mg PO DAILY 8 Days #8 tablet 06/29/20 [Rx] Famotidine [Pepcid] 20 mg PO BID 30 Days #60 tab 06/29/20 [Rx] Zinc Sulfate [Orazinc] 220 mg PO DAILY 30 Days #30 cap 06/29/20 [Rx] Follow up Appointment(s)/Referral(s): Ezra Fonseca DO [Doctor of Osteopathic Medicine] - 07/24/20 2:00 pm Billy Polanco DO [Primary Care Provider] - 07/06/20 1:00 pm (This will be a virtual visit. ) Patient Instructions/Handouts: Coronavirus Disease 2019 (COVID-19) Activity/Diet/Wound Care/Special Instructions: Activity Limited until follow-up follow up with Primary care provider upon discharge Follow-up with pulmonary outpatient Continue current diet Continue with dexamethasone until finished Continue to isolate, frequent handwashing, mask wearing for an additional 7 days until symptom-free Encourage fluids and rest Monitor for fever and treat with Tylenol Discharge Disposition: HOME SELF-CARE
--- NOTE | 2020-06-29 16:42 | P.PN ---
Subjective Progress Note Date: 06/29/20 Principal diagnosis: Dyspnea, cough, hypoxemia, pneumonia 54-year-old female, who was transferred down from [facility], for possible COVID 19 pneumonia and acute hypoxemic respiratory failure. The patient hasn't been feeling well since June 17. Her was diagnosed with COVID 19, and again she's been sick for about 10 or 11 days. Her symptoms included nausea, vomiting, cough, shortness of breath, and just not feeling well, with weakness, fatigue, and muscle aches. She has also had headache. Currently, she resides in the emergency room, she's on 5 L nasal cannula, and saline at 20 mL an hour. She had a recent test that [facility] on June 27. The results are currently pending. She was given a chest x-ray at the outside hospital, place on oxygen, and given some Decadron. She has a history of gastroesophageal reflux disease, hypertension, sleep apnea syndrome, hiatal hernia, and diverticular disease. She has no prior history of any lung issues. White count is 5.2, hemoglobin 15.8, hematocrit 47.1, and platelet count is normal. PT INR and d-dimer are all normal. Sodium potassium chloride CO2 anion gap, BUN, and creatinine are all within normal range. The results of the COVIDtest at the outside hospital are not available. On 06/29/2000 patient seen in follow-up on medical floor, patient looks very comfortable, and she states she is feeling better, her breathing has been stable, comfortable, no worsening dyspnea or hypoxia, patient remains on room air pulse ox is 92%, no fever or chills, signs have been stable, respirations a re nonlabored. His labs have been reviewed, CBC was unremarkable, d-dimer remains low at 0.22, renal profile and electrolytes within normal limits Objective - Vital Signs Vital signs: Vital Signs Temp 97.7 F 06/29/20 10:00 Pulse 82 06/29/20 10:00 Resp 18 06/29/20 10:00 BP 142/88 06/29/20 10:00 Pulse Ox 95 06/29/20 11:53 Intake & Output 06/28/20 06/29/20 06/29/20 18:59 06:59 18:59 Weight 113.398 kg 113.398 kg Other: Voiding Method Toilet - Exam GENERAL EXAM: Alert, very pleasant 54-year-old female, on room air, with pulse ox of 95% of comfortable in no apparent distress. HEAD: Normocephalic/atraumatic. EYES: Normal reaction of pupils, equal size. Conjunctiva pink, sclera white. NOSE: Clear with pink turbinates. THROAT: No erythema or exudates. NECK: No masses, no JVD, no thyroid enlargement, no adenopathy. CHEST: No chest wall deformity. Symmetrical expansion. LUNGS: Equal air entry with no crackles, wheeze, rhonchi or dullness. CVS: Regular rate and rhythm, normal S1 and S2, no gallops, no murmurs, no rubs ABDOMEN: Soft, nontender. No hepatosplenomegaly, normal bowel sounds, no guarding or rigidity. EXTREMITIES: No clubbing, no edema, no cyanosis, 2+ pulses and upper and lower extremities. MUSCULOSKELETAL: Muscle strength and tone normal. SPINE: No scoliosis or deformity SKIN: No rashes CENTRAL NERVOUS SYSTEM: Alert and oriented -3. No focal deficits, tone is normal in all 4 extremities. PSYCHIATRIC: Alert and oriented -3. Appropriate affect. Intact judgment and insight. - Labs CBC & Chem 7: 06/29/20 05:22 06/29/20 05:22 Labs: Abnormal Lab Results - Last 24 Hours (Table) 06/29/20 Range/Units 05:22 Glucose 109 H (74-99) mg/dL Assessment and Plan Plan: Assessment: #1. Acute hypoxic respiratory failure related to COVID 19 pneumonia, and patient was outside the window for Remdesivir, she's been treated with steroids, vitamins, and prophylactic anticoagulation #2. GERD/reflux #3. History of hypertension #4. History of obstructive sleep apnea currently on CPAP #5. History of hiatal hernia #6. History of diverticulitis Plan: Patient is doing well, no worsening dyspnea or hypoxemia, breathing comfortably, remains on room air, there has been no worsening of her dyspnea. Patient can be considered for discharge home today on 10 day course of oral Decadron 6 mg daily for total of 10 days, she can continue on vitamins, albuterol inhaler. Obtain home oxygen assessment. Increase activity as tolerated, follow-up with Dr. Fonseca in the office in one or 2 weeks I performed a history & physical examination of the patient and discussed their management with my nurse practitioner, Judit Tyler. I reviewed the nurse practitioner's note and agree with the documented findings and plan of care. Lung sounds are positive for diminished breath sounds. The findings and the impression was discussed with the patient. I attest to the documentation by the nurse practitioner. Time with Patient: Less than 30
== END 2020-06-29 14:26 | disposition home or self-care (01) | DRG 177 ==
LOC: EC 17:47 → 4SSUR 18:10
PROVIDERS: ADMIT Internal Medicine; ATTEND Internal Medicine
DX: U07.1 COVID-19 (principal); J12.82 Pneumonia due to coronavirus disease 2019; J96.01 Acute respiratory failure with hypoxia; Z68.41 Body mass index [BMI] 40.0-44.9, adult; E66.9 Obesity, unspecified; K21.9 Gastro-esophageal reflux disease without esophagitis; I10 Essential (primary) hypertension; G47.33 Obstructive sleep apnea (adult) (pediatric); K44.9 Diaphragmatic hernia without obstruction or gangrene; R51.9 Headache, unspecified; K57.90 Diverticulosis of intestine, part unspecified, without perforation or abscess without bleeding; Z79.82 Long term (current) use of aspirin; Z79.899 Other long term (current) drug therapy; Z90.49 Acquired absence of other specified parts of digestive tract; Z87.42 Personal history of other diseases of the female genital tract; Z87.19 Personal history of other diseases of the digestive system; Z98.51 Tubal ligation status; Z87.39 Personal history of other diseases of the musculoskeletal system and connective tissue; Z98.890 Other specified postprocedural states; Z71.3 Dietary counseling and surveillance; Z88.1 Allergy status to other antibiotic agents; Z91.040 Latex allergy status
CPT/HCPCS: 71045; 80053; 85025; 85379; 85610; 94760; 99285

== ENCOUNTER 2020-07-07 10:33 | Emergency (ER) | payer BC ==
[2020-07-07 10:41] VITALS: TEMP 99
--- NOTE | 2020-07-07 11:02 | ED ---
Headache HPI - General Chief Complaint: Headache Stated Complaint: new onset double vision, headache, dizziness Time Seen by Provider: 07/07/20 10:58 Source: RN notes reviewed, old records reviewed Mode of arrival: EMS Limitations: no limitations - History of Present Illness Initial Comments: This is a 54-year-old female DF for evaluation presented today for evaluation regards to headache. Patient has had a persistent headache starting today some nausea but mainly some blurry vision which made her concerned. Some dizziness. No modifying factors for headache, she denies any active trauma. No current fevers. Patient did recently have covert and initial diagnosis 3 weeks ago and she feels like she is should've started to get her ring about a week ago but it has been persistent with feelings of sluggishness weakness not feeling well, persistent headache MD Complaint: headache -: hour(s) Onset Description: gradual Location: frontal Severity: mild Severity scale (1-10): 2 Quality: throbbing Consistency: constant Improves With: nothing Worsens With: none Context: recent URI (Patient recently did have coronavirus) Associated Symptoms: nausea, tingling/numbness, weakness Other Symptoms: malaise, eye pain/redness Treatments Prior to Arrival: none - Related Data Home Medications Medication Instructions Recorded Confirmed Aspirin [Adult Low Dose Aspirin EC] 81 mg PO DAILY 03/26/15 06/27/20 Enalapril [Vasotec] 10 mg PO DAILY 03/26/15 06/27/20 Metoprolol Succinate (ER) [Toprol 25 mg PO DAILY 03/26/15 06/27/20 XL] Multivitamins, Thera [Multivitamin 1 tab PO DAILY 06/27/20 06/27/20 (formulary)] Previous Rx's Medication Instructions Recorded Acetaminophen Tab [Tylenol] 650 mg PO Q6HR PRN #30 tab 06/29/20 Albuterol Inhaler [Ventolin Hfa 2 puff INHALATION RT-QID PRN 30 06/29/20 Inhaler] Days #1 puff Ascorbic Acid [Vitamin C] 500 mg PO BID 30 Days #60 tab 06/29/20 Cholecalciferol [Vitamin D3 (25 100 mcg PO DAILY 30 Days #30 tablet 06/29/20 Mcg = 1000 Iu)] Dexamethasone 6 mg PO DAILY 8 Days #8 tablet 06/29/20 Famotidine [Pepcid] 20 mg PO BID 30 Days #60 tab 06/29/20 Zinc Sulfate [Orazinc] 220 mg PO DAILY 30 Days #30 cap 06/29/20 Allergies Allergy/AdvReac Type Severity Reaction Status Date / Time latex Allergy causes Verified 07/07/20 10:41 blistering and sloughing of skin nitrofurantoin Allergy Rash/Hives Verified 07/07/20 10:41 macrocrystalline [From Macrodantin] Review of Systems ROS Statement: Those systems with pertinent positive or pertinent negative responses have been documented in the HPI. ROS Other: All systems not noted in ROS Statement are negative. Past Medical History Past Medical History: GERD/Reflux, Hypertension, Sleep Apnea/CPAP/BIPAP Additional Past Medical History / Comment(s): recent dx of hital hernia,diverticulitis History of Any Multi-Drug Resistant Organisms: None Reported Past Surgical History: Cholecystectomy, Coronary Bypass/CABG, Orthopedic Surgery, Tubal Ligation, Uterine Ablation Additional Past Surgical History / Comment(s): BILAT KNEE SCOPES, bladder sling, breast biopsies Past Anesthesia/Blood Transfusion Reactions: Postoperative Nausea & Vomiting (PONV) Past Psychological History: No Psychological Hx Reported Smoking Status: Never smoker Past Alcohol Use History: Rare Past Drug Use History: None Reported - Past Family History Mother Family Medical History: Cancer General Exam Limitations: no limitations General appearance: alert, in no apparent distress Head exam: Present: atraumatic, normocephalic, normal inspection Eye exam: Present: normal appearance, PERRL, EOMI. Absent: scleral icterus, conjunctival injection, periorbital swelling ENT exam: Present: normal exam, mucous membranes moist Neck exam: Present: normal inspection. Absent: tenderness, meningismus, lymphadenopathy Respiratory exam: Present: normal lung sounds bilaterally. Absent: respiratory distress, wheezes, rales, rhonchi, stridor Cardiovascular Exam: Present: regular rate, normal rhythm, normal heart sounds. Absent: systolic murmur, diastolic murmur, rubs, gallop, clicks GI/Abdominal exam: Present: soft, normal bowel sounds. Absent: distended, tenderness, guarding, rebound, rigid Extremities exam: Present: normal inspection, full ROM, normal capillary refill. Absent: tenderness, pedal edema, joint swelling, calf tenderness Back exam: Present: normal inspection Neurological exam: Present: alert, oriented X3, CN II-XII intact Psychiatric exam: Present: normal affect, normal mood Skin exam: Present: warm, dry, intact, normal color. Absent: rash Course Vital Signs 07/07/20 10:39 Temperature 99.0 F Pulse Rate 86 Respiratory 17 Rate Blood Pressure 140/98 O2 Sat by Pulse 97 Oximetry - Reevaluation(s) Reevaluation #1: 07/07/20 13:09 Medical record is reviewed Reevaluation #2: 07/07/20 13:09 Headache is improved here in the ER Reevaluation #3: 07/07/20 13:09 Patient does feel good for discharge home Medical Decision Making - Medical Decision Making 54 female presents today for evaluation, patient presents today for evaluation regards to headache, patient to coronavirus is had persistent coronavirus, patient's headache is resolved and patient can be discharged home - Lab Data Result diagrams: 07/07/20 12:14 07/07/20 12:14 Lab Results 07/07/20 07/07/20 Range/Units 12:14 12:14 WBC 7.3 (3.8-10.6) k/uL RBC 5.28 (3.80-5.40) m/uL Hgb 15.9 (11.4-16.0) gm/dL Hct 46.0 (34.0-46.0) % MCV 87.1 (80.0-100.0) fL MCH 30.0 (25.0-35.0) pg MCHC 34.5 (31.0-37.0) g/dL RDW 12.4 (11.5-15.5) % Plt Count 223 (150-450) k/uL MPV 7.5 Neutrophils % 66 % Lymphocytes % 23 % Monocytes % 5 % Eosinophils % 4 % Basophils % 1 % Neutrophils # 4.8 (1.3-7.7) k/uL Lymphocytes # 1.7 (1.0-4.8) k/uL Monocytes # 0.3 (0-1.0) k/uL Eosinophils # 0.3 (0-0.7) k/uL Basophils # 0.0 (0-0.2) k/uL Sodium 140 (137-145) mmol/L Potassium 4.3 (3.5-5.1) mmol/L Chloride 105 (98-107) mmol/L Carbon Dioxide 27 (22-30) mmol/L Anion Gap 8 mmol/L BUN 11 (7-17) mg/dL Creatinine 0.57 (0.52-1.04) mg/dL Est GFR (CKD-EPI)AfAm >90 (>60 ml/min/1.73 sqM) Est GFR (CKD-EPI)NonAf >90 (>60 ml/min/1.73 sqM) Glucose 98 (74-99) mg/dL Calcium 9.8 (8.4-10.2) mg/dL Magnesium 2.1 (1.6-2.3) mg/dL Total Bilirubin 0.5 (0.2-1.3) mg/dL AST 24 (14-36) U/L ALT 28 (4-34) U/L Alkaline Phosphatase 79 (38-126) U/L Lactate Dehydrogenase 399 (313-618) U/L C-Reactive Protein 19.5 H (<10.0) mg/L Total Protein 7.3 (6.3-8.2) g/dL Albumin 4.4 (3.5-5.0) g/dL - EKG Data -: EKG Interpreted by Me (EKG shows NSR 80 KY 172QRS 80 QTc 433) - Radiology Data Radiology results: report reviewed (CT brain negative for acute disease), image reviewed Disposition Clinical Impression: Migraine headache, Cluster headaches Disposition: HOME SELF-CARE Condition: Good Instructions (If sedation given, give patient instructions): Acute Headache (ED) Is patient prescribed a controlled substance at d/c from ED?: No Referrals: Billy Montez DO [Primary Care Provider] - 1-2 days
[2020-07-07] MEDS ORDERED: diphenhydrAMINE 50 MG/ML 1 ML VIAL IVP STA (11:06)
[2020-07-07] MEDS ORDERED: MORPHINE SULFATE 4 MG/ML SYRINGE IVP STA (11:06)
[2020-07-07] MEDS ORDERED: PROCHLORPERAZINE INJ 10 MG/2 ML VIAL IVP STA (11:06)
[2020-07-07] MEDS ORDERED: SODIUM CHLORIDE 0.9% 1,000 ML IV STA (11:06)
[2020-07-07 12:25] LABS: Basophils % (A) 1 %; Eosinophils # (A) 0.3 k/uL (0-0.7); Eosinophils % (A) 4 %; HGB 15.9 gm/dL (11.4-16.0); Lymphocytes # (A) 1.7 k/uL (1.0-4.8); Lymphocytes % (A) 23 %; MCHC 34.5 g/dL (31.0-37.0); MCV 87.1 fL (80.0-100.0); Mean Platelet Volume 7.5; Monocytes # (A) 0.3 k/uL (0-1.0); Monocytes % (A) 5 %; Neutrophils # (A) 4.8 k/uL (1.3-7.7); Neutrophils % (A) 66 %; Platelet Count 223 k/uL (150-450); RBC 5.28 m/uL (3.80-5.40); RDW 12.4 % (11.5-15.5); WBC 7.3 k/uL (3.8-10.6)
[2020-07-07 12:36] LABS: ALT 28 U/L (4-34); AST 24 U/L (14-36); African American GFR (CKD) >90 (>60 ml/min/1.73 sqM); Albumin 4.4 g/dL (3.5-5.0); Alkaline Phosphatase 79 U/L (38-126); Anion Gap 8 mmol/L; Blood Urea Nitrogen 11 mg/dL (7-17); C Reactive Protein 19.5 mg/L (<10.0); Calcium 9.8 mg/dL (8.4-10.2); Carbon Dioxide 27 mmol/L (22-30); Chloride 105 mmol/L (98-107); Glucose 98 mg/dL (74-99); LDH 399 U/L (313-618); Magnesium 2.1 mg/dL (1.6-2.3); Non-African American GFR(CKD) >90 (>60 ml/min/1.73 sqM); Potassium 4.3 mmol/L (3.5-5.1); Sodium 140 mmol/L (137-145); Total Bilirubin 0.5 mg/dL (0.2-1.3); Total Protein 7.3 g/dL (6.3-8.2)
--- NOTE | 2020-07-07 12:51 | CT ---
EXAMINATION TYPE: CT brain [place] [place] DATE OF EXAM: 07/07/2020 COMPARISON: None HISTORY: LANDON, Dizziness, Double vision CT DLP: 1673.[address] of the brain was performed. The ventricles, basal cisterns and sulci overlying the cerebral convexities demonstrate mild enlargem ent. There is no evidence for intracranial hemorrhage or sulcal effacement. There is decreased attenuatio n about the periventricular white matter and deep white matter of both cerebral hemispheres, compatib le with chronic small vessel ischemia. No mass effects are seen. If symptoms persist consider MRI. Osseous calvarium is intact. IMPRESSION: 1. Age related atrophic and chronic small vessel ischemic change without acute intracranial process seen at this time. CT Cervical Spine: Unenhanced CT of the cervical spine was performed with bone and soft tissue window settings submitted . Coronal and sagittal reconstruction is obtained. There is normal alignment and prevertebral soft tissues. No evidence for acute cervical fracture . Scattered degenerative disc disease and spondylosis. Biapical scarring. IMPRESSION: 1. No evidence for acute fracture or subluxation of the cervical spine.
[2020-07-07] MEDS ORDERED: KETOROLAC 15 MG/ML 1 ML VIAL IVP STA (13:00)
[2020-07-07] MEDS ORDERED: DEXAMETHASONE SOD PHOSPHATE 10 MG/ML 1 ML VIAL IV STA (13:05)
[2020-07-07 13:26] VITALS: BP 121/88; PULSE 75; RESP 18
== END 2020-07-07 13:19 | disposition home or self-care (01) ==
LOC: EC 10:33
DX: G40.909 Epilepsy, unspecified, not intractable, without status epilepticus (principal); G44.009 Cluster headache syndrome, unspecified, not intractable; I10 Essential (primary) hypertension; G47.30 Sleep apnea, unspecified; K21.9 Gastro-esophageal reflux disease without esophagitis; Z99.89 Dependence on other enabling machines and devices; Z90.49 Acquired absence of other specified parts of digestive tract; Z95.1 Presence of aortocoronary bypass graft; Z98.51 Tubal ligation status
CPT/HCPCS: 36415; 93005; 80053; 83615; 83735; 85025; 86140; 72125; 70450; 99284; 96374; 96375; J1200; J0780

== ENCOUNTER → 2020-08-07 | Outpatient (CLI) | payer BC ==
--- NOTE | 2020-08-07 09:26 | XR ---
EXAMINATION TYPE: XR knee complete LT DATE OF EXAM: 08/07/2020 CLINICAL HISTORY: pain TECHNIQUE: Three views of the left knee are obtained. COMPARISON: None. FINDINGS: There is no acute fracture/dislocation. The tri-compartment joint spaces appear within no rmal limits. The overlying soft tissue appears unremarkable. IMPRESSION: There is no acute fracture or dislocation ICD 10 NO FRACTURE, INITIAL EVALUATION
== END | disposition home or self-care (01) ==
LOC: RADXRYALE 09:05
PROVIDERS: ATTEND Physician Assistant Medical
DX: M25.562 Pain in left knee (principal)

== ENCOUNTER → 2020-09-17 | Outpatient (CLI) | payer BC ==
--- NOTE | 2020-09-17 09:17 | US ---
EXAMINATION TYPE: US extremity nonvasculr ltd LT DATE OF EXAM: 09/17/2020 COMPARISON: NONE CLINICAL HISTORY: 55-year-old female R22.42 Localized swelling mass and lump. Lump seen on left later al calf since June, no pain, no discoloration Technique: Targeted ultrasound examination along the lateral aspect of the left calf at the palpable site. FINDINGS: Sales Clerk Supervisor notes: Soft tissue scan produces no fluid collection, mass or other abnormality, possible lipoma versus other etiology IMPRESSION: Targeted scanning of the superficial tissues along the left lateral calf at the patient's palpable si te shows no discrete sonographic abnormality. A poorly encapsulated subcutaneous lipoma is a possibil ity. Recommend clinical follow-up. If there is any growth, either rescan or obtain MRI. Surgical eval uation can also be considered.
== END | disposition home or self-care (01) ==
LOC: RADUSWWP 07:10
PROVIDERS: ATTEND Family Medicine
DX: R22.42 Localized swelling, mass and lump, left lower limb (principal)

== ENCOUNTER → 2021-12-13 | Outpatient (CLI) | payer BC ==
--- NOTE | 2021-12-13 11:06 | XR ---
EXAMINATION TYPE: XR ankle complete LT DATE OF EXAM: 12/13/2021 CLINICAL HISTORY: Pain after recent fall injury. TECHNIQUE: Frontal, lateral and oblique images of the right ankle are obtained. COMPARISON: None. FINDINGS: There is no acute fracture/dislocation evident in the right ankle. The ankle mortise appe ars within normal limits. Tiny broad-based bony projection from the medial malleolus could reflect ti ny osteochondroma. An os trigonum is incidentally noted. The overlying soft tissue appears unremarkab le. IMPRESSION: There is no acute fracture or dislocation in the right ankle.
== END | disposition home or self-care (01) ==
LOC: RADXRYALE 10:35
PROVIDERS: ATTEND Physician Assistant Medical
DX: M25.572 Pain in left ankle and joints of left foot (principal); W18.40XA Slipping, tripping and stumbling without falling, unspecified, initial encounter

== ENCOUNTER → 2022-01-10 | Outpatient (CLI) | payer BC ==
--- NOTE | 2022-01-10 13:29 | US ---
EXAMINATION TYPE: US kidneys/renal and bladder DATE OF EXAM: 01/10/2022 COMPARISON: NONE CLINICAL HISTORY: R10.2 PELVIC AND PERINEAL PAIN. Right lower back pain x 2 days. EXAM MEASUREMENTS: Right Kidney: 10.8 x 5.1 x 4.7 cm Left Kidney: 11.1 x 5.7 x 5.6 cm Right Kidney: Multiple tiny echogenic foci. Largest in mid pole 0.5 x .09 x 06cm with ringdown artif act. Left Kidney: Mulitple tiny echogenic foci. Largest in mid pole 0.6 x 0.3 c 0.7cm with ringdown artif act. Bladder: wnl Bilateral Jets seen: No There is no evidence for hydronephrosis at this point in time. No masses are identified. The urinar y bladder is anechoic. IMPRESSION: Nonobstructing renal calculi noted. Otherwise unremarkable study.
[2022-01-10 14:30] LABS: Basophils % (A) 1 %; Eosinophils # (A) 0.3 k/uL (0-0.7); Eosinophils % (A) 3 %; HCT 45.8 % (34.0-46.0); HGB 14.7 gm/dL (11.4-16.0); Lymphocytes # (A) 2.2 k/uL (1.0-4.8); Lymphocytes % (A) 27 %; MCH 28.6 pg (25.0-35.0); MCHC 32.1 g/dL (31.0-37.0); MCV 89.3 fL (80.0-100.0); Monocytes # (A) 0.4 k/uL (0-1.0); Monocytes % (A) 5 %; Neutrophils % (A) 63 %; Platelet Count 221 k/uL (150-450); RBC 5.13 m/uL (3.80-5.40); RDW 12.5 % (11.5-15.5)
[2022-01-10 18:31] LABS: African American GFR (CKD) 113.8 (60.0-200.0); Anion Gap 10.8 mmol/L (10.00-18.00); BUN/Creat Ratio 14.43 Ratio (12.00-20.00); Blood Urea Nitrogen 10.1 mg/dL (9.0-27.0); Calcium 9.7 mg/dL (8.7-10.3); Carbon Dioxide 27.2 mmol/L (20.0-27.5); Non-African American GFR(CKD) 98.2 (60.0-200.0); Potassium 4.3 mmol/L (3.5-5.5)
== END | disposition home or self-care (01) ==
LOC: RADUSWWP 12:30
PROVIDERS: ATTEND Family Medicine
DX: N20.0 Calculus of kidney (principal)
CPT/HCPCS: 76770; 80048; 85025

== ENCOUNTER → 2022-02-05 | Outpatient (CLI) | payer BC ==
--- NOTE | 2022-02-05 12:12 | XR ---
EXAMINATION TYPE: XR KUB DATE OF EXAM: 02/05/2022 11:27 AM CLINICAL HISTORY: Kidney calculus. TECHNIQUE: 3 supine KUB images of the abdomen are obtained. COMPARISON: CT abdomen and pelvis August 16, 2018 FINDINGS: Scattered gas is seen in non-distended stomach and small bowel loops. Gas and fecal materia l is seen in non-distended colon. No suspicious calcifications. Cholecystectomy clips are redemonstra roshni. Lung bases are clear. Visualized osseous structures are intact IMPRESSION: No definite nephrolithiasis.
== END | disposition home or self-care (01) ==
LOC: RADXRMAIN 11:12
PROVIDERS: ATTEND Urology
DX: N20.0 Calculus of kidney (principal)
CPT/HCPCS: 74018

== ENCOUNTER → 2022-02-21 | Outpatient (CLI) | payer BC ==
--- NOTE | 2022-02-21 09:39 | CT ---
EXAMINATION TYPE: CT abdomen pelvis wo con DATE OF EXAM: 02/21/2022 COMPARISON: 08/16/2018 INDICATION: Right sided abdominal pain, blood in urine DLP: 1118 mGycm, Automated exposure control for dose reduction was used. CONTRAST: 0 mL of Isovue 300. Study performed without Oral Contrast TECHNIQUE: Axial images were obtained from above the diaphragm to the pubic rami in the axial plane a t 5 mm thick sections. Reconstructed images are reviewed on the computer in the coronal plane. FINDINGS: Limited CT sections are obtained the lung bases. The lung bases are clear. CT ABDOMEN: Liver: There is moderate fatty infiltration throughout the liver. No discrete masses are evident. Spleen: Normal Pancreas: Normal Adrenal glands: The adrenal glands are normal. Gallbladder: Absent Kidneys: No masses are evident. No hydronephrosis is present. No cysts are present. No renal stone s are identified on this examination. Aorta: Normal Inferior vena cava: Normal. CT PELVIS: Loops of bowel within the abdomen and pelvis are normal. There are loops of bowel which are incom pletely distended or lack oral contrast limiting their evaluation. Appendix: Appears to be the appendix is Normal as visualized. No suspicious laboratory changes eviden t Urinary bladder: Decompressed limiting evaluation. Genitourinary structures: Uterus is normal. Adnexal regions appear unremarkable. Osseous structures: No suspicious lytic or sclerotic lesions. Couple of small right iliac nodes are p resent. Small inguinal lymph nodes are noted. IMPRESSIONS: 1. No suspicious acute changes to account for blood in urine. No renal or ureteral stones identified .
== END | disposition home or self-care (01) ==
LOC: RADCTMAIN 06:26
PROVIDERS: ATTEND Urology
DX: N20.0 Calculus of kidney (principal)
CPT/HCPCS: 74176

== ENCOUNTER → 2022-10-17 | Outpatient (CLI) | payer BC ==
--- NOTE | 2022-10-21 10:21 | MM ---
Reason for Exam: Screening (asymptomatic). Last mammogram was performed 2 year(s) and 1 month(s) ago. Patient History: Menarche at age 14. First Full-Term at age 20. Hormonal Contraceptives, starting at age 20 for 7 years. Excisional Biopsy on the Right side. Benign Excisional Biopsy on the left side. Benign Excisional Biopsy on the left side. Maternal grandmother had breast cancer. Paternal aunt had breast cancer. Mother had breast cancer at or over age 50. Risk Values: Mansi 5 year model risk: 3.3%. NCI Lifetime model risk: 21.3%. Prior Study Comparison: 02/15/2011 Bilateral Screening Mammogram, [facility]. 02/21/2011 Left Diagnostic Mammogram, [facility]. 08/22/2011 Left Diagnostic Mammogram, [facility]. 09/17/2020 Bilateral Screening Mammogram, [facility]. Tissue Density: The breast tissue is heterogeneously dense. This may lower the sensitivity of mammography. Findings: Analyzed By CAD. There is no suspicious group of microcalcifications or new suspicious mass in either breast. Overall Assessment: Negative, BI-RAD 1 Management: Screening Mammogram of both breasts in [address] [facility] will attempt to contact patient to return for supplemental views and ultrasound if indicated. Patient should continue monthly self-breast exams. A clinical breast exam by your physician is recommended on an annual basis. This exam should not preclude additional follow-up of suspicious palpable abnormalities. Note on Mansi scores and lifetime risk: 1. A Mansi score greater than 3% is considered moderate risk. If this is the case, consider specialist referral to assess eligibility for a risk reducing agent. 2. If overall lifetime risk for the development of breast cancer is 20% or higher, the patient may qualify for future screening with alternating mammogram and breast MRI. Electronically signed and approved by: Ezra Chaudhry DO
== END | disposition home or self-care (01) ==
LOC: RADMAMWWP 15:39
PROVIDERS: ATTEND Obstetrics & Gynecology
DX: Z12.31 Encounter for screening mammogram for malignant neoplasm of breast (principal); Z80.3 Family history of malignant neoplasm of breast
CPT/HCPCS: 77063; 77067

== ENCOUNTER → 2023-12-01 | Outpatient (CLI) | payer BC ==
--- NOTE | 2023-12-18 20:47 | MM ---
Reason for Exam: Screening (asymptomatic). Last mammogram was performed 1 year(s) and 1 month(s) ago. Patient History: Menarche at age 14. First Full-Term at age 20. Postmenopausal. Hormonal Contraceptives, starting at age 20 for 7 years. Excisional Biopsy on the Right side. Benign Excisional Biopsy on the left side. Benign Excisional Biopsy on the left side. Maternal grandmother had breast cancer. Paternal aunt had breast cancer. Mother had breast cancer at or over age 50. Risk Values: Bambi 5 year model risk: 3.4%. NCI Lifetime model risk: 20.8%. Prior Study Comparison: 08/22/2011 Left Diagnostic Mammogram, [facility]. 09/17/2020 Bilateral Screening Mammogram, [facility]. 10/17/2022 Bilateral MG 3D screening mammo w/cad, [facility]. Tissue Density: There are scattered areas of fibroglandular density. Findings: Analyzed By CAD. Focal asymmetry upper outer quadrant right rest middle to posterior depth is more defined and incompletely disperses on 3-D images. This may represent superimposition shadow but further evaluation is recommended. Otherwise, no significant change. Overall Assessment: Incomplete: need additional imaging evaluation, BI-RAD 0 Management: Special View Mammogram of the right breast. Diagnostic Breast Ultrasound of the right breast. SEE NOTE BELOW IN REGARDS TO PATIENT'S INCREASED 5 YEAR BAMBI SCORE AND INCREASED LIFETIME RISK SCORE. [facility] will attempt to contact patient to return for supplemental views and ultrasound if indicated. Note on Bambi scores and lifetime risk: 1. A Bambi score greater than 3% is considered moderate risk. If this is the case, consider specialist referral to assess eligibility for a risk reducing agent. 2. If overall lifetime risk for the development of breast cancer is 20% or higher, the patient may qualify for future screening with alternating mammogram and breast MRI. Electronically signed and approved by: Taylor Workman M.D. Radiologist
== END | disposition home or self-care (01) ==
LOC: RADMAMWWP 16:21
PROVIDERS: ATTEND Obstetrics & Gynecology
DX: Z12.31 Encounter for screening mammogram for malignant neoplasm of breast (principal); Z78.0 Asymptomatic menopausal state; Z80.3 Family history of malignant neoplasm of breast; R92.323 Mammographic fibroglandular density, bilateral breasts
CPT/HCPCS: 77063; 77067

== ENCOUNTER → 2023-12-24 | Outpatient (CLI) | payer BC ==
--- NOTE | 2023-12-24 14:12 | MM ---
Reason for Exam: Additional evaluation requested from abnormal screening. Last screening mammogram was performed less than 1 month ago. Patient History: Menarche at age 14. First Full-Term at age 20. Postmenopausal. Hormonal Contraceptives, starting at age 20 for 7 years. Excisional Biopsy on the Right side. Benign Excisional Biopsy on the left side. Benign Excisional Biopsy on the left side. Maternal grandmother had breast cancer. Paternal aunt had breast cancer. Mother had breast cancer at or over age 50. Risk Values: Mansi 5 year model risk: 3.4%. NCI Lifetime model risk: 20.8%. Tissue Density: Right: The breasts are heterogeneously dense, which may obscure small masses. Findings: Analyzed By CAD. No persistent nodule or mass. Overall Assessment: Benign, BI-RAD 2 Management: Screening Mammogram of both breasts in 1 year. . Results were given to the patient verbally at the time of exam. Patient should continue monthly self-breast exams. A clinical breast exam by your physician is recommended on an annual basis. This exam should not preclude additional follow-up of suspicious palpable abnormalities. Note on Mansi scores and lifetime risk: 1. A Mansi score greater than 3% is considered moderate risk. If this is the case, consider specialist referral to assess eligibility for a risk reducing agent. 2. If overall lifetime risk for the development of breast cancer is 20% or higher, the patient may qualify for future screening with alternating mammogram and breast MRI. Electronically signed and approved by: Ryan Thomas M.D. Radiologis
== END | disposition home or self-care (01) ==
LOC: RADMAMWWP 13:45
PROVIDERS: ATTEND Obstetrics & Gynecology
DX: R92.8 Other abnormal and inconclusive findings on diagnostic imaging of breast
CPT/HCPCS: 77061; 77065